=== PATIENT | female | born 1990 | race American Indian/Alaskan Native ===

== ENCOUNTER 2016-11-08 23:00 | Inpatient (IN) | payer BC, MEDICAID ==
[2016-11-08 23:00] VITALS: BMI 24.4
--- NOTE | 2016-11-08 23:17 | ED PDOC ---
Psych Transfer Clearance - Clearance Statement Clearance Statement: Reviewed vital signs, lab results and transfer papers. Patient clinically stable for psychiatric admission.
[2016-11-08] MEDS ORDERED: Alum-Mag Hydrox-Simethicone Susp (30 mL) PO PRN (23:47)
[2016-11-08] MEDS ORDERED: DiphenhydrAMINE 50 mg/ml Inj IM PRN (23:47)
[2016-11-08] MEDS ORDERED: Magnesium Hydroxide Susp 30 ml UD PO PRN (23:47)
--- NOTE | 2016-11-09 00:38 | PCM.BM ---
<Kodak Espinosa H - Last Filed: 11/09/16 00:35> Treatment Plan Problems - Problems identified on initial assessmt hopeless/helplessness Date Initiated: 11/09/16 Time Initiated: 00:36 Assessment reference: NA Status: Active feeling of worthlessness Date Initiated: 11/09/16 Time Initiated: 00:37 Assessment reference: NA Status: Active Treatment assets and liabiliti Patient Assests: adapts well, cooperative, resourceful, self-reliant, ADL independent, physically healthy, negotiates basic needs Patient Liabilities: live alone, substance abuse - Milieu Protocol Maintain good personal hygiene: every other day Encourage regular showers, every other day Remind patient to perform daily oral care, every other day Assist patient to perform ADL's Maintain personal safety: every shift Educate patient to report safety concerns to staff, every shift Monitor environment for contraband/sharps Medication safety: Monitor for expected outcome, potential side effects: every shift, Assess barriers to learning: every shift, Assess readiness for medication education: every shift Family Contact Family involvement: Famliy/SO not involved Discharge/Continuing Care - Education Needs Education Needs: Patient Medication, Patient Diagnosis/Disease Process, Patient Placement options, Patient Health Practices/Safety - Discharge Discharge Criteria: Tolerates medication w/o severe side effects, Free of Suicidal thoughts, Free of paranoid thoughts, Normal sleep pattern, Ability to care for self <Javid Becerril J - Last Filed: 11/10/16 14:30> Family Contact Family contact: Patient declines to allow family contact at present - Outside Agency Agency 1 Care involvment: Following patient during stay, Information-sharing Agency contact name: [facility] Agency contact number: [phone] - Goals for Treatment Patient goals for treatment: Pt reported that she would like to begin to build her coping skills to be able to better handle her depression and to gain insight into her mental illness and substance use.
[2016-11-09 09:04] LABS: T4 9.3 ug/dl (5.5-11.0)
[2016-11-09 09:18] LABS: THYROID STIMULATING HORMONE 0.68 mIU/ML (0.46-4.68)
[2016-11-09 09:36] VITALS: O2SAT 100
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
--- NOTE | 2016-11-09 15:42 | CP.PCM.CON ---
History of Present Illness - History of Present Illness History of Present Illness: Pt is a 26 yo F with no significant past medical history, admitted to psychiatric inpatient unit for depression. Patient offers no complaints at this time, denies that anything is bothering her. PMH: none, pt denies Past surgical hx: none, pt denies Family Hx: pt denies family hx stroke, ID, HTN, DM2 Allergies: NKDA Medications: lexapro Social Hx: tobacco 6 cig/day for the past 10 yrs, EtOH- 2 drinks/month, drugs/ illicit substance: admits to marijuana smoking, denies cocaine, heroin. Lives alone in [place], unemployed. OBGYNhx: G0. LMP: last week, does not recall exact day ROS: General: Denies fevers, chills. HEENT: Denies headaches, vision changes, hearing changes. Skin: Denies rash/color changes. Cardiovascular: Denies chest pain, dyspnea on exertion. Respiratory: Denies shortness of breath, cough. Gastrointestinal: Denies nausea, vomiting, diarrhea, constipation. No blood in the stool. MSK: Denies generalized weakness/pains. Neuro: Denies problems with balance, dizziness. Review of Systems - Review of Systems Review of Systems: as per HPI Past Patient History - Past Social History Smoking Status: Light Smoker < 10 Cigarettes Daily Alcohol: Occasional Drugs: Cannabis Home Situation {Lives}: Alone - CARDIAC Hx Cardiac Disorders: No Hx Hypertension: No - PULMONARY Hx Tuberculosis: No - NEUROLOGICAL HX Cerebrovascular Accident: No Hx Seizures: No - HEMATOLOGICAL/ONCOLOGICAL Hx Cancer: No - GENITOURINARY/GYNECOLOGICAL Hx Sexually Transmitted Disorders: No - PSYCHIATRIC Hx Substance Use: Yes (PCP;Marijuana) - ANESTHESIA Hx Anesthesia: No Meds Allergies/Adverse Reactions: Allergies Allergy/AdvReac Type Severity Reaction Status Date / Time No Known Allergies Allergy Verified 11/08/16 23:11 - Medications Medications: Current Medications Acetaminophen (Tylenol 325mg Tab) 650 mg PO Q4 PRN PRN Reason: pain level 1 to 7 Last Admin: 11/09/16 10:05 Dose: 650 mg Al Hydrox/Mg Hydrox/Simethicone (Maalox Plus 30 Ml) 30 ml PO Q4 PRN PRN Reason: Dyspepsia Diphenhydramine HCl (Benadryl) 50 mg IM Q6 PRN PRN Reason: Extrapyramidal S/S Unable PO Diphenhydramine HCl (Benadryl) 50 mg PO Q6 PRN PRN Reason: Extrapyramidal Symptoms Diphenhydramine HCl (Benadryl) 50 mg PO HS PRN PRN Reason: Sleep Escitalopram Oxalate (Lexapro) 10 mg PO DAILY ELISSA Haloperidol (Haldol) 5 mg PO Q4 PRN PRN Reason: Agitation Haloperidol Lactate (Haldol) 5 mg IM Q4 PRN PRN Reason: Agitation, Unable to Take PO Lorazepam (Ativan) 2 mg IM Q4 PRN PRN Reason: Anxiety/Agitation,Unable PO Lorazepam (Ativan) 2 mg PO Q4 PRN PRN Reason: Anxiety/Agitation Magnesium Hydroxide (Milk Of Magnesia) 30 ml PO HS PRN PRN Reason: Constipation Mirtazapine (Remeron) 15 mg PO HS PRN PRN Reason: Insomnia Nicotine (Nicoderm Cq) 1 patch TD DAILY ELISSA Physical Exam - Constitutional Appears: Non-toxic, No Acute Distress - Head Exam Head Exam: NORMAL INSPECTION - Eye Exam Eye Exam: EOMI, Normal appearance, PERRL - ENT Exam ENT Exam: Mucous Membranes Moist Additional comments: no erythema, no exudates - Respiratory Exam Respiratory Exam: Clear to Auscultation Bilateral, NORMAL BREATHING PATTERN. absent: Wheezes, Respiratory Distress - Cardiovascular Exam Cardiovascular Exam: REGULAR RHYTHM, +S1, +S2 - GI/Abdominal Exam GI & Abdominal Exam: Normal Bowel Sounds, Soft - Extremities Exam Extremities exam: Positive for: full ROM, normal capillary refill, normal inspection - Neurological Exam Neurological exam: Alert, CN II-XII Intact, Oriented x3 - Skin Skin Exam: Dry, Intact, Normal Color, Warm Results - Vital Signs Recent Vital Signs: Last Vital Signs Temp 96.6 F L 11/09/16 09:00 Pulse 69 11/09/16 09:00 Resp 18 11/09/16 09:00 BP 115/70 11/09/16 09:00 Pulse Ox 100 11/09/16 09:00 - Labs Labs: Laboratory Results - last 24 hr 11/09/16 11/09/16 11/09/16 08:00 08:00 08:00 Hemoglobin A1c 5.7 Triglycerides 153 H Cholesterol 188 LDL Cholesterol Direct 112 HDL Cholesterol 37 Thyroxine (T4) 9.30 Total T3 1.15 L TSH 3rd Generation 0.68 Assessment & Plan - Assessment and Plan (Free Text) Assessment: This is a 26 yo F with no significant medical history and no complaints at this time. Plan: 1. Depression -mgmt by primary inpt psychiatric team
--- NOTE | 2016-11-10 12:28 | PCM.PYCHPN ---
Psychiatric Progress Note - Psychiatric Progress Note Patient seen today, length of contact: in treatment team Patient Chief Complaint: i need to take care of myself Problems Identified/Issues Discussed: pt seen in team. c/o feeling her teeth grinding and feels shaky today after starting lexapro. she is agreeable to referral to the php at [facility]. she is tearful when talking about her family. she attends groups and interacts well with peers. Medication Change: No Medical Record Reviewed: Yes Mental Status Examination - Cognitive Function Orientation: Person, Place, Situation, Time Memory: Intact Attention: WNL Concentration: WNL Association: [facility] Fund of Knowledge: [facility] Decription of patient's judgement and insights: fair - Mood Mood: Depressed - Affect Affect: Broad (brighter than stated mood) - Speech Speech: Appropriate - Formal Thought Process Formal Thought Process: No Impairment Psychotic Thoughts and Behaviors: denies a/v hallucinations - Suicidal Ideation Suicidal Ideation: No - Homicidal Ideation Homicidal Ideation: No Goal/Treatment Plan - Goal/Treatment Plan Need for Continued Stay: Remain at risks for inpatient hospitalization, Severe functional impairment Progress Toward Problem(s) and Goals/Treatment Plan: major depression recurrent r/o ptsd pcp dependence continue current medications but will lower dose to 5mg disposition planning- tentative dc tomorrow Estimated Date of D/C: 11/11/16 - Smoking Cessation Smoking Cessation Initiated: Yes
[2016-11-10] MEDS: Vitamins A & D Oint UD Foilpak TOP SCH (18:17)
[2016-11-11 09:09] VITALS: BP 133/89; PULSE 91; RESP 20; TEMP 96.9
[2016-11-11] MEDS: Vitamins A & D Oint UD Foilpak TOP SCH (09:48)
--- NOTE | 2016-11-11 09:52 | PCM.PYCHDC ---
Mental Status Examination - Mental Status Examination Orientation: Person, Place, Situation, Time Memory: Intact Mood: Neutral Speech: Appropriate Attention: WNL Concentration: WNL Association: WNL Fund of Knowledge: WNL Formal Thought Process: No Impairment Description of patient's judgement and insight: fair Psychotic Thoughts and Behaviors: denies a/v hallucinations Suicidal Ideation: No Current Homicidal Ideation?: No Plan: pt denies suicidal or homicidal thoughts Discharge Summary - Discharge Note Reason for Hospitalization: pt with suicidal thoughts, depression. felt her drug use was out of control Psychiatric History (includes Medical, Family, Personal Hx): history of taking lexapro in the past Consultations:: List each consultation separately and include: 1. Reason for request. 2. Findings. 3. Follow-up Consultations: seen by the hospitalist Summary of Hospital Course include:: 1. Description of specific treatment plan utilized for patients during their course of treatmen. 2. Summarize the time- course for resolution of acute symptoms and/or regressed behaviors. 3. Describe issues identified and worked on during hospitalization. 4. Describe medication utilized. 5. Describe medical problems identified and treated. 6. Reassessment of suicide risk Summary of Hospital Course: 26 yo single female, living [place]. she is currently unemployed. she was brought to the ER by her counselor from [facility] where she was living after running away from home at age 12. she expressed feeling depressed, hopeless and having fleeting suicidal thoughts. she was distressed with her inability to stop using PCP which she smokes 1-2 times daily for the last 14 years. she states the longest she has been able to stay sober has been 8 days. she reports she is depressed. she gave up trying to go to school and finds little enjoyment in life. she is tearful. she states she tries to cover up her depression by laughing and trying to help others, but "now it is time i took care of myself." hospital course: pt was admitted to [facility] and oriented to the unit. pt was placed on routine safety protocols. pt was started back on lexapro. she c/o some tremors and jaw clenching and the dose was reduced to 5mg. pt was participating actively in groups. she was agreeable to referral to outpatient treatment. she was denying any suicidal or homicidal thoughts at the time of discharge. - Final Diagnosis (DSM 5) Condition upon Discharge: STABLE Disposition: DISCH HOME UNDER CARE IP CARLINE Follow-up Treatment Plan: follow up with aftercare as directed take medications as prescribed do not use alcohol, tobacco or other illicit substances call 911 if any suicidal or homicidal thoughts attend AA/NA meetings daily Prescriptions/Medication Reconciliation: Escitalopram [Lexapro] 10 mg PO DAILY #30 tab Nicotine 7 mg/24 hr [Nicoderm CQ] 1 patch TD DAILY #30 patch - Smoking Cessation Smoking Cessation Medication prescribed: Yes - Antipsychotic Medications Pt discharged on 2 or more routine antipsychotic medications: No
== END 2016-11-11 15:21 | disposition home or self-care (01) | DRG 885 ==
LOC: H.ER 23:00 → H.PSYCH 23:17
PROVIDERS: ADMIT Psychiatry & Neurology Psychiatry; ATTEND Psychiatry & Neurology Psychiatry
PROC: GZHZZZZ Group Psychotherapy (ICD-10-PCS; principal; 2016-11-08)
PROC: HZ59ZZZ Individual Psychotherapy for Substance Abuse Treatment, Supportive (ICD-10-PCS; 2016-11-08)
DX: F33.1 Major depressive disorder, recurrent, moderate (principal); R45.851 Suicidal ideations; F16.20 Hallucinogen dependence, uncomplicated; F17.200 Nicotine dependence, unspecified, uncomplicated